=== PATIENT | male | born 1965 | race Caucasian/White ===

== ENCOUNTER 2024-03-26 10:50 | Emergency (ER) | payer OTHER, SELFPAY ==
--- NOTE | ~2024-03-26 | XR_ITS ---
EXAMINATION: XR thoracic spine 3V DATE: 03/26/2024 11:45 INDICATION: Back pain. TECHNIQUE: 3 views of thoracic spine were obtained. COMPARISON: None. FINDINGS: Alignment is normal. Vertebral body heights are normal. Intervertebral disc heights are nor mal. There are endplate osteophytes at most levels. IMPRESSION: 1. Mild thoracic spondylosis. Reviewed, dictated and finalized at location A. PATH THERAPIST
--- NOTE | ~2024-03-26 | XR_ITS ---
EXAMINATION: XR chest 2V DATE: 03/26/2024 11:44 INDICATION: Pain in posterior ribs. TECHNIQUE: Frontal and lateral views of the chest were obtained. COMPARISON: None. FINDINGS: There are airspace opacities in left lower lobe. No pleural effusion or pneumothorax. The h eart size is normal. IMPRESSION: 1. Airspace opacities in left lower lobe, consistent with atelectasis versus pneumonia. Reviewed, dictated and finalized at location A. H WEIGHER IMPRESSION: 1. Airspace opacities in left lower lobe, consistent with atelectasis versus pn eumonia.
[2024-03-26 11:01] VITALS: BP 122/81; PULSE 72; RESP 16; TEMP 36.4; O2SAT 100
--- NOTE | 2024-03-26 11:21 | ED_ITS ---
HPI - General Adult General Chief complaint: Back Pain/Injury Stated complaint: Back Pain Source: patient Mode of arrival: ambulatory Limitations: no limitations History of Present Illness HPI narrative: Patient presents for evaluation of back pain. Symptom onset this morning. He was lying in bed and noticed his symptoms when moving. He states pain is constant, sharp, 4/10 in severity. Pain radiates bilaterally across his posterior ribs. He may have had similar symptoms about a year ago but pain was not as severe at that time. Denies any cough shortness of breath. He took Tylenol with not a considerable change in his pain thereafter. Related Data Home Medications Medication Instructions Recorded Confirmed atorvastatin 40 mg tablet 40 mg PO DAILY 03/26/24 03/26/24 Allergies Allergy/AdvReac Type Severity Reaction Status Date / Time No Known Allergies Allergy Verified 03/26/24 11:06 Review of Systems Review of Systems: CONSTITUTIONAL: Denies fever, chills, or sweats. EYES: Denies visual changes, redness, or discharge. ENT: Denies rhinorrhea, congestion, sore throat, or otalgia. CARDIOVASCULAR: Denies chest pain, palpitations, or edema. RESPIRATORY: Denies cough or dyspnea. GASTROINTESTINAL: Denies abdominal pain, nausea, vomiting, or diarrhea. GENITOURINARY: Denies dysuria or hematuria. SKIN: Denies rash or itching. MUSCULOSKELETAL: Reports back pain. Denies joint pain, or myalgia. NEUROLOGIC: Denies headache, numbness, dizziness, or weakness. PSYCHIATRIC: Denies anxiety or depression. PMFSH Past Medical History Medical History (Updated 03/26/24 @ 12:02 by JUANI Scott, ) Hyperlipidemia Surgical History Surgical History No pertinent past surgical history Family History Family History Mother Family history non-contributory Social History Social History Smoking status: Never smoker Substance use: never Living arrangements: with family Gender identity (if verbalized by the patient): Male Spiritual care concerns: No Exam Narrative: GENERAL: Well-appearing, well-nourished, and in no acute distress. HEAD: Normocephalic, atraumatic. EYES: PERRLA and EOMI. ENT: Nares clear, no rhinorrhea or epistaxis. Mucous membranes moist. Oropharynx without tonsillar hypertrophy exudate or other lesions. Bilateral TMs pearly blevins nonbulging NECK: Supple. No adenopathy or masses. No carotid bruits or JVD CHEST: Clear to auscultation. No respiratory distress. No wheezes rales or rhonchi HEART: Regular rate and rhythm. No murmur heard. Normal peripheral pulses. BACK: There is mild tenderness in left paraspinous muscles of thoracic spine and over the left lower costal border ABDOMEN: Soft, nontender, nondistended, normal active bowel sounds. EXTREMITIES: Normal range of motion. No edema. SKIN: Warm, dry, no rash. NEURO: No focal deficits. Alert and oriented x3. PSYCH: Normal mood and affect. Course Course Emergency Course: This is a 59-year-old male who presented for evaluation of back pain. X-ray con cerning for community-acquired pneumonia. Based upon location of his pain, I suspect that this is indeed present despite the lack of respiratory symptoms. Will discharge with Augmentin azithromycin. Also give him some Flexeril in the event that some of his symptoms may be muscular in origin. He should follow-up with his primary provider and go to the emergency department for worsening symptoms. Patient in agreement with plan of care. Level of Care: Express Care Visit Vital Signs Vital signs: Vital Signs Temperature 36.4 C 03/26/24 11:01 Pulse Rate 72 03/26/24 11:01 Respiratory Rate 16 03/26/24 11:01 Blood Pressure 122/81 03/26/24 11:01 Pulse Oximetry 100 03/26/24 11:01 Oxygen Delivery Room Air 03/26/24 11:01 Temperature 36.4 C 03/26/24 11:01 Pulse Rate 72 03/26/24 11:01 Respiratory Rate 16 03/26/24 11:01 Blood Pressure 122/81 03/26/24 11:01 Pulse Oximetry 100 03/26/24 11:01 Oxygen Delivery Room Air 03/26/24 11:01 Medical Decision Making Vital Signs Vital Signs: Vital Signs Temperature 36.4 C 03/26/24 11:01 Pulse Rate 72 03/26/24 11:01 Respiratory Rate 16 03/26/24 11:01 Blood Pressure 122/81 03/26/24 11:01 Pulse Oximetry 100 03/26/24 11:01 Oxygen Delivery Room Air 03/26/24 11:01 Temperature 36.4 C 03/26/24 11:01 Pulse Rate 72 03/26/24 11:01 Respiratory Rate 16 03/26/24 11:01 Blood Pressure 122/81 03/26/24 11:01 Pulse Oximetry 100 03/26/24 11:01 Oxygen Delivery Room Air 03/26/24 11:01 Imaging Data Radiologist's impression: EXAMINATION: XR thoracic spine 3V DATE: 03/26/2024 11:45 INDICATION: Back pain. TECHNIQUE: 3 views of thoracic spine were obtained. COMPARISON: None. FINDINGS: Alignment is normal. Vertebral body heights are normal. Intervertebral disc heights are normal. There are endplate osteophytes at most levels. IMPRESSION: 1. Mild thoracic spondylosis EXAMINATION: XR chest 2V DATE: 03/26/2024 11:44 INDICATION: Pain in posterior ribs. TECHNIQUE: Frontal and lateral views of the chest were obtained. COMPARISON: None. FINDINGS: There are airspace opacities in left lower lobe. No pleural effusion or pneumothorax. The heart size is normal. IMPRESSION: 1. Airspace opacities in left lower lobe, consistent with atelectasis versus pneumonia. Discharge Plan Discharge Clinical Impression: Community acquired pneumonia, Spondylosis Patient Disposition: Home, Self-Care Condition: Stable Instructions: Antibiotic Form, Community Acquired Pneumonia (ED), Degenerative Disc Disease (ED) Patient Language: Chinese Prescriptions: New amoxicillin-pot clavulanate 875-125 mg tablet 1 tablet PO Q12H Qty: 20 0RF azithromycin 250 mg tablet See Rx Instructions .ROUTE .COMPLEX Qty: 6 0RF Rx Instructions: For 250 mg dose pack: take 500 mg today (day 1), then 250 mg for 4 days (days 2-5) cyclobenzaprine 10 mg tablet 10 mg PO TID PRN (Reason: muscle spasm) Qty: 15 0RF No Action atorvastatin 40 mg tablet 40 mg PO DAILY Follow-up/Referrals: Corina Fisher [Other] Time of Disposition: 12:02
== END 2024-03-26 12:06 | disposition home or self-care (01) ==
PROVIDERS: Emergency Provider Nurse Practitioner
DX: J18.9 Pneumonia, unspecified organism (principal); M47.819 Spondylosis without myelopathy or radiculopathy, site unspecified
CPT/HCPCS: 71046; 72072; 99204; G0463